=== PATIENT | female | born 1965 | race Asian ===

== ENCOUNTER 2019-06-05 11:13 | Day surgery (SDC) | payer OTHER ==
[2019-06-05] VITALS (12 sets, daily range): BP systolic 105–113; BP diastolic 64–74; PULSE 65–84; RESP 12–17; Ht 165.1 cm; Wt 61.9 kg
[~2019-06-05] VITALS: Ht 165.1 cm; Wt 61.9 kg
[2019-06-05] MEDS ORDERED: LACTATED RINGER'S 1,000 ML IV SCH (12:30)
[2019-06-05] MEDS ORDERED: LIDOCAINE 2% (SDV) 5 ML INJ ONE (13:04)
[2019-06-05] MEDS ORDERED: PROPOFOL 20 ML ONE (13:04)
[2019-06-05] MEDS ORDERED: CEFAZOLIN 1 GM INJ ONE (13:04)
[2019-06-05] MEDS ORDERED: MIDAZOLAM 1 MG/ML 2 ML INJ ONE (13:05)
[2019-06-05] MEDS ORDERED: MEPERIDINE 100 MG INJ ONE (13:23)
[2019-06-05] MEDS ORDERED: ONDANSETRON 4 MG INJ ONE (13:46)
[2019-06-05] MEDS ORDERED: METOCLOPRAMIDE 10 MG INJ ONE (13:46)
[2019-06-05] MEDS ORDERED: LABETALOL HCL 20MG INJ IV PRN (14:30)
[2019-06-05] MEDS ORDERED: METOCLOPRAMIDE 10 MG INJ IV PRN (14:30)
[2019-06-05] MEDS ORDERED: DIPHENHYDRAMINE 50 MG INJ IV PRN (14:30)
[2019-06-05] MEDS ORDERED: ONDANSETRON 4 MG INJ IV PRN (14:30)
[2019-06-05] MEDS ORDERED: EPHEDrine 25 MG/5 ML SYG IV PRN (14:30)
[2019-06-05] MEDS ORDERED: OXYCODONE/ACETAMINOPHEN (5/325) TAB PO PRN ×2 (14:30)
[2019-06-05] MEDS ORDERED: HYDROmorphONE 1 MG/5 ML IV SYRINGE IV PRN ×3 (14:30)
[2019-06-05] MEDS ORDERED: MEPERIDINE 25 MG INJ IV PRN (14:30)
[2019-06-05] MEDS ORDERED: hydrALAzine 20 MG INJ IV PRN (14:30)
[2019-06-05] MEDS ORDERED: MIDAZOLAM 1 MG/ML 2 ML INJ IV PRN (14:30)
[2019-06-05] MEDS ORDERED: FENTAnyl 50 MCG/ML VIAL IV PRN ×3 (14:30)
== END 2019-06-05 17:09 | disposition home or self-care (01) ==
LOC: SDS 11:13
PROVIDERS: ATTEND Obstetrics & Gynecology
DX: Z30.432 Encounter for removal of intrauterine contraceptive device (principal)
CPT/HCPCS: 58562; 84703; 88305; J0690; J2175; J2250; J2405; J2765